=== PATIENT | male | born 1940 | race American Indian/Alaskan Native ===

== ENCOUNTER 2017-07-23 12:31 | Emergency (ER) | payer MEDICARE ==
--- NOTE | 2017-07-23 13:21 | Emergency Department Report ---
HPI - General Chief Complaint: Allergic Reaction Time Seen by Provider: 07/23/17 13:06 - HPI HPI: 77 yo male with history of hypertension presents with 3 days of lower lip swelling. He denies rash. He denies trouble swallowing. Denies tongue edema. He denies shortness of breath. He stated that the lip swelling began after taking a small little white pill. He lives in [place]. He is here with a friend helping with a construction project. I spoke with his and pharmacist. Medications were confirmed with the pharmacy at [phone] He is taking iron tablets: Dulcolax pantoprazole Flomax fosinopril amlodipine hydralazine Fosinopril identified as a small white pill with a #200 ED Past Medical Hx - Past Medical History Hx Hypertension: Yes - Social History Smoking Status: Current Every Day Smoker ED Review of Systems ROS: Stated complaint: ALLERGIC REACTION Other details as noted in HPI Comment: All other systems reviewed and negative Respiratory: denies: cough Cardiovascular: denies: chest pain Gastrointestinal: denies: abdominal pain, nausea, vomiting Physical Exam - Physical Exam Vital Signs: Vital Signs 07/23/17 12:54 Temperature 98.0 F Pulse Rate 63 Blood Pressure 140/64 O2 Sat by Pulse 98 Oximetry Physical Exam: General: Well-appearing, no acute distress looking younger than stated age HEENT: Normocephalic atraumatic pupils equal round and reactive to light anicteric sclera Nose: no rhinorrhea Oropharynx: Clear mucous membranes no lesions, mildly edematous lower lip normal speech Neck: supple, no meningismus Chest: Clear to auscultation bilaterally no rales rhonchi no wheezes Cardiac: Regular rate and rhythm no murmurs no rubs no gallops Abdomen: Soft nontender nondistended positive bowel sounds no guarding Extremities: No cyanosis no clubbing no edema Neuro: Moves all extremities 4, no gross deficits Psychiatric: Alert and oriented 4 normal affect normal judgment normal insight ED Course Vital Signs 07/23/17 12:54 Temperature 98.0 F Pulse Rate 63 Blood Pressure 140/64 O2 Sat by Pulse 98 Oximetry ED Medical Decision Making - Lab Data Result diagrams: 07/23/17 13:07 07/23/17 13:07 Laboratory Results - last 24 hr 07/23/17 07/23/17 13:07 13:07 WBC 5.8 RBC 4.63 Hgb 9.4 L Hct 31.5 L MCV 68 L MCH 20 L MCHC 30 L RDW 28.6 H Plt Count 309 Sodium 142 Potassium 4.3 Chloride 100.9 Carbon Dioxide 29 Anion Gap 16 BUN 16 Creatinine 0.8 Estimated GFR > 60 BUN/Creatinine Ratio 20 Glucose 97 Calcium 8.5 Total Bilirubin < 0.20 AST 20 ALT 11 Alkaline Phosphatase 62 Total Protein 7.3 Albumin 4.0 Albumin/Globulin Ratio 1.2 Vital Signs - 24 hr 07/23/17 07/23/17 07/23/17 12:54 13:30 13:58 Temperature 98.0 F 98.7 F Pulse Rate 63 62 Respiratory 16 15 Rate Blood Pressure 140/64 Blood Pressure 139/68 [Right] O2 Sat by Pulse 98 98 100 Oximetry 07/23/17 14:00 Temperature Pulse Rate 75 Respiratory 17 Rate Blood Pressure 128/63 Blood Pressure [Right] O2 Sat by Pulse 100 Oximetry - Medical Decision Making Mr. Velazquez presents with 3 days of lower lip swelling. 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 I removed a small little white pills in his pill bottle. He understands to not take this medication any longer. He understands that he has an CAMELIA inhibitor allergy. He will continue taking amlodipine hydralazine for blood pressure control. He received 1 dose of IV methylprednisolone in the ED. Typical hypersensitivity medications are not indicated. He is discharged without prescription. Critical care attestation.: If time is entered above; I have spent that time in minutes in the direct care of this critically ill patient, excluding procedure time. ED Disposition Clinical Impression: CAMELIA inhibitor-aggravated angioedema Disposition: - TO HOME OR SELFCARE Is pt being admited?: No Does the pt Need Aspirin: No Condition: Stable Instructions: Angioedema (ED) Additional Instructions: Please stop taking the little white pill with the number 200 printed on it. THis medication is called Fosinopril. Lip and tongue swelling is common with this medication. You are no longer able to take blood pressure medicine ending with the letters PRIL or pril. You are currently taking hydralazine and amlodipine. This medications which will control your blood pressure. Referrals: CELI HERNÁNDEZ MD [Staff Physician] - as needed Time of Disposition: 15:00
[2017-07-23 13:31] LABS: Mean Corpuscular HGB Conc 30 % (32-34); Platelet Count 309 K/mm3 (140-440); Red Blood Count 4.63 M/mm3 (3.65-5.03)
[2017-07-23 13:40] LABS: Alanine Aminotransferase 11 units/L (7-56); BUN/Creatinine Ratio 20; Blood Urea Nitrogen 16 mg/dL (9-20); Calcium 8.5 mg/dL (8.4-10.2); Hemolysis Index 0
[2017-07-23 13:44] LABS: Hematocrit 31.5 % (35.5-45.6); Hemoglobin 9.4 gm/dl (11.8-15.2); Mean Corpuscular Hemoglobin 20 pg (28-32); Mean Corpuscular Volume 68 fl (84-94); Red Cell Distribution Width 28.6 % (13.2-15.2)
[2017-07-23 15:21] VITALS: BP 120/69
== END 2017-07-23 15:19 | disposition home or self-care (01) ==
LOC: ED 12:31
DX: T78.3XXA Angioneurotic edema, initial encounter (principal); I10 Essential (primary) hypertension; Y92.89 Other specified places as the place of occurrence of the external cause
CPT/HCPCS: 36415; 80053; 85027; 93005; 93010; 96374; 99283; J2930